=== PATIENT | male | born 2000 | race Caucasian/White ===

== ENCOUNTER → 2021-04-03 15:37 | Outpatient (BNVA) | payer MEDICAID, SELFPAY | PROVIDERS: Family Provider Nurse Practitioner Family; PCP Family Medicine; Visit Provider Nurse Practitioner Family | DX: Z20.822 Contact with and (suspected) exposure to COVID-19 (principal); J11.1 Influenza due to unidentified influenza virus with other respiratory manifestations | CPT/HCPCS: 87400; 87635 ==